=== PATIENT | female | born 1930 | race Caucasian/White ===

== ENCOUNTER → 2017-01-05 | Outpatient (CLI) | payer MEDICARE ==
--- NOTE | 2017-01-06 09:14 | US ---
EXAMINATION TYPE: Ultrasound MSK right shoulder DATE OF EXAM: 01/05/2017 COMPARISON: None available CLINICAL HISTORY: 86-year-old female M25.511 Pain in shoulder for 2 years. Patient reports a large sp ur on outside radiographs. Steroid injection last week with improvement. TECHNIQUE: Multiple sonographic images of the right shoulder are obtained. FINDINGS: The long head biceps tendon is thickened and hypoechoic. There is also some interstitial tearing shon g the extracapsular portion. There is mild bony irregularity at the lesser tuberosity with mild heterogeneity of the subscapularis tendon which remains intact. Moderate degenerative joint space narrowing with marginal spurring and capsular hypertrophy and small effusion at the acromioclavicular joint. There is diffuse thickening and heterogeneity of the supraspinatus and infraspinatus tendons though w ith volume loss and a full-thickness tear of the mid supraspinatus tendon measuring 7 mm AP dimension and up to 1.4 cm long with a fluid interposed in the gap. The infraspinatus tendon appears intact. No fluid distention of the subacromial/subdeltoid bursa. No significant fatty atrophy of the supraspinatus or infraspinatus muscle bellies. Limited visualization of the posterior labrum. There appears to be a trace effusion in the posterior recess of the glenohumeral joint. Spinoglenoid groove is clear. IMPRESSION: 1. Diffuse rotator cuff tendinosis with a full-thickness tear of the mid supraspinatus tendon measuri ng 7 mm AP dimension and 1.4 cm long. No significant muscle atrophy. 2. Tendinosis with interstitial tearing involving the long head biceps tendon. 3. Moderate AC joint osteoarthrosis.
== END | disposition home or self-care (01) ==
LOC: RADUSWWP 12:20
PROVIDERS: ATTEND Orthopaedic Surgery Sports Medicine
DX: M75.121 Complete rotator cuff tear or rupture of right shoulder, not specified as traumatic (principal); M19.011 Primary osteoarthritis, right shoulder; S46.111A Strain of muscle, fascia and tendon of long head of biceps, right arm, initial encounter; X58.XXXA Exposure to other specified factors, initial encounter

== ENCOUNTER 2017-10-07 00:14 | Emergency (ER) | payer MEDICARE ==
[2017-10-07] MEDS ORDERED: ONDANSETRON 4 MG/2 ML VIAL IVP STA (00:32)
--- NOTE | 2017-10-07 00:52 | ED ---
Nausea/Vomiting/Diarrhea HPI - General Chief complaint: Nausea/Vomiting/Diarrhea Stated complaint: Vomiting Time Seen by Provider: 10/07/17 00:30 Source: patient, family Mode of arrival: ambulatory Limitations: no limitations - History of Present Illness Initial comments: This patient is an 87-year-old woman who presents to be evaluate for vomiting. She had approximately 4 episodes of vomiting over the past 2 hours. She states that some of the material appeared rust colored, however she did eat tomato soup. Patient denies chest or abdominal pain. No change in bowel movements. MD complaint: vomiting Onset/Timin -: hour(s) Description of Vomiting: food contents Associated Abdominal Pain: No Severity scale (1-10): 0 Improves with: none Worsens with: none Associated Symptoms: denies other symptoms - Related Data Previous Rx's Medication Instructions Recorded Ondansetron Odt [Zofran ODT] 4 mg PO Q8HR PRN #10 tab 10/07/17 Sulfamethox-Tmp 800-160Mg [Bactrim 1 each PO Q12HR #6 tab 10/07/17 Ds] Allergies Allergy/AdvReac Type Severity Reaction Status Date / Time shellfish derived [Shellfish] Allergy Rash/Hives Verified 10/07/17 00:26 Review of Systems ROS Statement: Those systems with pertinent positive or pertinent negative responses have been documented in the HPI. ROS Other: All systems not noted in ROS Statement are negative. Constitutional: Denies: fever, chills, weakness Respiratory: Denies: cough, dyspnea Cardiovascular: Denies: chest pain, palpitations, syncope Gastrointestinal: Reports: nausea, vomiting. Denies: abdominal pain, diarrhea, constipation, hematemesis Genitourinary: Denies: dysuria, hematuria Musculoskeletal: Denies: back pain Skin: Denies: rash Neurological: Denies: headache, weakness, numbness Past Medical History Past Medical History: Hyperlipidemia, Hypertension Additional Past Medical History / Comment(s): vertigo, arthritis History of Any Multi-Drug Resistant Organisms: None Reported Past Surgical History: Ear Surgery, Hysterectomy Past Psychological History: No Psychological Hx Reported Smoking Status: Never smoker Past Alcohol Use History: Occasional Past Drug Use History: None Reported General Exam Limitations: no limitations General appearance: alert, in no apparent distress Head exam: Present: atraumatic, normocephalic Eye exam: Present: normal appearance. Absent: scleral icterus, conjunctival injection ENT exam: Present: normal oropharynx Neck exam: Present: normal inspection, full ROM Respiratory exam: Present: normal lung sounds bilaterally. Absent: respiratory distress, wheezes, rales, rhonchi, stridor Cardiovascular Exam: Present: regular rate, normal rhythm, normal heart sounds. Absent: systolic murmur, diastolic murmur, rubs, gallop GI/Abdominal exam: Present: soft, normal bowel sounds. Absent: distended, tenderness, guarding, rebound, rigid, mass, pulsatile mass, hernia Extremities exam: Present: normal inspection, normal capillary refill. Absent: pedal edema, calf tenderness Back exam: Present: normal inspection. Absent: CVA tenderness (R), CVA tenderness (L) Neurological exam: Present: alert Skin exam: Present: warm, dry, intact, normal color. Absent: rash Course Vital Signs 10/07/17 10/07/17 10/07/17 00:22 01:26 02:05 Temperature 99.3 F Pulse Rate 100 91 88 Respiratory 20 16 19 Rate Blood Pressure 128/72 107/67 111/61 O2 Sat by Pulse 96 98 97 Oximetry 10/07/17 02:52 Temperature 97.7 F Pulse Rate 77 Respiratory 16 Rate Blood Pressure 110/65 O2 Sat by Pulse 93 L Oximetry Medical Decision Making - Medical Decision Making Patient had resolution of vomiting with the Zofran and is now asymptomatic. She does feel well and would like to go home. Discussed appropriate follow-up as well as return parameters. - Lab Data Result diagrams: 10/07/17 00:40 10/07/17 00:40 Lab Results 10/07/17 10/07/17 10/07/17 Range/Units 00:40 00:40 00:40 WBC 8.0 (3.8-10.6) k/uL RBC 4.31 (3.80-5.40) m/uL Hgb 12.2 (11.4-16.0) gm/dL Hct 36.1 (34.0-46.0) % MCV 83.7 (80.0-100.0) fL MCH 28.3 (25.0-35.0) pg MCHC 33.8 (31.0-37.0) g/dL RDW 13.4 (11.5-15.5) % Plt Count 289 (150-450) k/uL Neutrophils % 75 % Lymphocytes % 11 % Monocytes % 7 % Eosinophils % 3 % Basophils % 1 % Neutrophils # 6.0 (1.3-7.7) k/uL Lymphocytes # 0.9 L (1.0-4.8) k/uL Monocytes # 0.6 (0-1.0) k/uL Eosinophils # 0.2 (0-0.7) k/uL Basophils # 0.1 (0-0.2) k/uL Sodium 134 L (137-145) mmol/L Potassium 4.4 (3.5-5.1) mmol/L Chloride 94 L (98-107) mmol/L Carbon Dioxide 28 (22-30) mmol/L Anion Gap 12 mmol/L BUN 19 H (7-17) mg/dL Creatinine 0.80 (0.52-1.04) mg/dL Est GFR (CKD-EPI)AfAm 77 (>60 ml/min/1.73 sqM) Est GFR (CKD-EPI)NonAf 67 (>60 ml/min/1.73 sqM) Glucose 129 H (74-99) mg/dL Calcium 10.6 H (8.4-10.2) mg/dL Total Bilirubin 0.3 (0.2-1.3) mg/dL AST 26 (14-36) U/L ALT 24 (9-52) U/L Alkaline Phosphatase 78 (38-126) U/L Troponin I <0.012 (0.000-0.034) ng/mL Total Protein 6.8 (6.3-8.2) g/dL Albumin 4.0 (3.5-5.0) g/dL Amylase 84 (30-110) U/L Lipase 421 H (23-300) U/L Urine Color Urine Appearance (Clear) Urine pH (5.0-8.0) Ur Specific Grant (1.001-1.035) Urine Protein (Negative) Urine Glucose (UA) (Negative) Urine Ketones (Negative) Urine Blood (Negative) Urine Nitrite (Negative) Urine Bilirubin (Negative) Urine Urobilinogen (<2.0) mg/dL Ur Leukocyte Esterase (Negative) Urine RBC (0-5) /hpf Urine WBC (0-5) /hpf Ur Squamous Epith Cells (0-4) /hpf Urine Bacteria (None) /hpf Urine Mucus (None) /hpf 10/07/17 Range/Units 01:37 WBC (3.8-10.6) k/uL RBC (3.80-5.40) m/uL Hgb (11.4-16.0) gm/dL Hct (34.0-46.0) % MCV (80.0-100.0) fL MCH (25.0-35.0) pg MCHC (31.0-37.0) g/dL RDW (11.5-15.5) % Plt Count (150-450) k/uL Neutrophils % % Lymphocytes % % Monocytes % % Eosinophils % % Basophils % % Neutrophils # (1.3-7.7) k/uL Lymphocytes # (1.0-4.8) k/uL Monocytes # (0-1.0) k/uL Eosinophils # (0-0.7) k/uL Basophils # (0-0.2) k/uL Sodium (137-145) mmol/L Potassium (3.5-5.1) mmol/L Chloride (98-107) mmol/L Carbon Dioxide (22-30) mmol/L Anion Gap mmol/L BUN (7-17) mg/dL Creatinine (0.52-1.04) mg/dL Est GFR (CKD-EPI)AfAm (>60 ml/min/1.73 sqM) Est GFR (CKD-EPI)NonAf (>60 ml/min/1.73 sqM) Glucose (74-99) mg/dL Calcium (8.4-10.2) mg/dL Total Bilirubin (0.2-1.3) mg/dL AST (14-36) U/L ALT (9-52) U/L Alkaline Phosphatase (38-126) U/L Troponin I (0.000-0.034) ng/mL Total Protein (6.3-8.2) g/dL Albumin (3.5-5.0) g/dL Amylase (30-110) U/L Lipase (23-300) U/L Urine Color Light Yellow Urine Appearance Clear (Clear) Urine pH 8.0 (5.0-8.0) Ur Specific Grant 1.008 (1.001-1.035) Urine Protein Negative (Negative) Urine Glucose (UA) Negative (Negative) Urine Ketones Negative (Negative) Urine Blood Negative (Negative) Urine Nitrite Positive H (Negative) Urine Bilirubin Negative (Negative) Urine Urobilinogen <2.0 (<2.0) mg/dL Ur Leukocyte Esterase Large H (Negative) Urine RBC 1 (0-5) /hpf Urine WBC 20 H (0-5) /hpf Ur Squamous Epith Cells <1 (0-4) /hpf Urine Bacteria Few H (None) /hpf Urine Mucus Rare H (None) /hpf - EKG Data -: EKG Interpreted by Me EKG shows normal: sinus rhythm, axis (Normal), intervals, QRS complexes (Low- voltage), ST-T waves (Normal) Rate: tachycardia (Rate approximately 108 bpm) 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
[2017-10-07 01:05] LABS: Calcium 10.6 mg/dL (8.4-10.2); Potassium 4.4 mmol/L (3.5-5.1); Total Bilirubin 0.3 mg/dL (0.2-1.3); Total Protein 6.8 g/dL (6.3-8.2)
[2017-10-07 01:06] LABS: Basophils # (A) 0.1 k/uL (0-0.2); Basophils % (A) 1 %; Eosinophils # (A) 0.2 k/uL (0-0.7); Eosinophils % (A) 3 %; HCT 36.1 % (34.0-46.0); HGB 12.2 gm/dL (11.4-16.0); Lymphocytes # (A) 0.9 k/uL (1.0-4.8); Lymphocytes % (A) 11 %; MCH 28.3 pg (25.0-35.0); MCHC 33.8 g/dL (31.0-37.0); MCV 83.7 fL (80.0-100.0); Mean Platelet Volume 8.6; Monocytes # (A) 0.6 k/uL (0-1.0); Monocytes % (A) 7 %; Neutrophils % (A) 75 %; Platelet Count 289 k/uL (150-450); RBC 4.31 m/uL (3.80-5.40); RDW 13.4 % (11.5-15.5)
[2017-10-07 01:54] LABS: Appearance,Urine Clear (Clear); Bacteria,Urine Few /hpf; Bilirubin,Urine Negative (Negative); Blood,Urine Negative (Negative); Color,Urine Light Yellow; Glucose,Urine (UA) Negative (Negative); Ketones,Urine Negative (Negative); Leukocyte Esterase,Urine Large (Negative); Mucus,Urine Rare /hpf; Nitrite,Urine Positive (Negative); Protein,Urine Negative (Negative); RBC,Urine 1 /hpf (0-5); Specific Gravity,Urine 1.008 (1.001-1.035); Squamous Epithelial Cell,Urine <1 /hpf (0-4); Urobilinogen,Urine <2.0 mg/dL (<2.0); WBC,Urine 20 /hpf (0-5)
[2017-10-07] MEDS ORDERED: SULFAMETHOX-TMP 800-160MG 1 EACH TAB PO STA (02:34)
[2017-10-07 02:54] VITALS: BP 110/65; PULSE 77; RESP 16; TEMP 97.7
== END 2017-10-07 02:54 | disposition home or self-care (01) ==
LOC: EC 00:14
DX: K85.90 Acute pancreatitis without necrosis or infection, unspecified (principal); N39.0 Urinary tract infection, site not specified; Z91.013 Allergy to seafood; Z90.710 Acquired absence of both cervix and uterus
CPT/HCPCS: 99284; 96374; 36415; 93005; 80053; 82150; 83690; 84484; 85025; 81001; J2405

== ENCOUNTER → 2019-01-23 | Outpatient (CLI) | payer MEDICARE ==
--- NOTE | 2019-01-23 12:11 | CT ---
EXAMINATION TYPE: CT knee LT wo con DATE OF EXAM: 01/23/2019 COMPARISON: None HISTORY: Pain, fracture Unenhanced CT was performed of the left knee with bone and soft tissue window settings submitted. Prema ges are reviewed in the axial coronal and sagittal planes. Automated exposure control for dose reduction was used. FINDINGS: There is mildly comminuted mildly displaced intracondylar proximal tibial fracture noted. Displacemen t is noted at 2.9 mm posteriorly. Hairline fracture components extending to the medial and lateral ti bial plateau. Fracture depression is noted at approximately 1.7 mm loose body noted adjacent to to th e lateral intercondylar spine measures 2 mm. Visualized of fibula and femur are grossly intact. There appears to be a small avulsion component arising from the superior patellar pole laterally. There is surrounding soft tissue edema about the left knee. Small hemarthrosis noted. IMPRESSION: 1. Mildly comminuted mildly displaced intracondylar proximal tibial fracture with hairline fracture c omponent extends extending to the medial and lateral tibial plateau. Fracture depression of 1.7 mm as noted above. 2. Small avulsion fracture superior pole of the patella laterally.
== END | disposition home or self-care (01) ==
LOC: RADCTMAIN 08:14
PROVIDERS: ATTEND Orthopaedic Surgery
DX: S82.142A Displaced bicondylar fracture of left tibia, initial encounter for closed fracture (principal); S82.092A Other fracture of left patella, initial encounter for closed fracture

== ENCOUNTER → 2019-01-28 | Outpatient (CLI) | payer MEDICARE | END | disposition home or self-care (01) | LOC: LABWHC1 12:19 | PROVIDERS: ATTEND Orthopaedic Surgery | DX: M79.605 Pain in left leg (principal); M25.562 Pain in left knee; S82.202D Unspecified fracture of shaft of left tibia, subsequent encounter for closed fracture with routine healing | CPT/HCPCS: 36415; 82306 ==

== ENCOUNTER → 2019-02-26 | Outpatient (CLI) | payer MEDICARE ==
--- NOTE | 2019-02-26 11:30 | US ---
EXAMINATION TYPE: US venous doppler duplex LE LT DATE OF EXAM: 02/26/2019 11:22 AM COMPARISON: NONE CLINICAL HISTORY: Pain in left lower leg M25.562,M79.605. Pain left leg, no known prior DVT SIDE PERFORMED: Left TECHNIQUE: The lower extremity deep venous system is examined utilizing real time linear array sonog jason with graded compression, doppler sonography and color-flow sonography. VESSELS IMAGED: External Iliac Vein (EIV) Common Femoral Vein Deep Femoral Vein Greater Saphenous Vein * Femoral Vein Popliteal Vein Small Saphenous Vein * Proximal Calf Veins (* superficial vessels) Left Leg: Negative for DVT, probable Pettit's Cyst left pop fossa= 4.6 x 0.8 x 2.2 cm Attempted to call Dr's office with results at time of exam, no answer Grayscale, color doppler, spectral doppler imaging performed of the deep veins of the left lower ext remity. There is normal flow, compressibility, vascular waveforms. IMPRESSION: Ultrasound of the acute DVT in the left lower extremity. Incidental small to moderate siz ed popliteal cyst noted towards end of study.
== END ==
LOC: RADUSWWP 11:06
PROVIDERS: ATTEND Orthopaedic Surgery
DX: I82.4Z2 Acute embolism and thrombosis of unspecified deep veins of left distal lower extremity (principal)